=== PATIENT | female | born 1990 | race American Indian/Alaskan Native ===

== ENCOUNTER 2020-12-27 12:39 | Outpatient (CLI) | payer OTHER ==
--- NOTE | 2020-12-27 14:10 | XRay Report ---
Lumbar spine, 3 views INDICATION: BACK PAIN. COMPARISON: None. FINDINGS: Vertebral body heights are preserved and there is no evidence for vertebral body fracture o r subluxation. Slight dextroconvex curvature of the lumbar spine centered at L2/L3, possibly due to p atient positioning. Intervertebral disc spaces are well preserved without significant degenerative ch lizett. Partially visualized tubing from a suspected ventriculoperitoneal shunt with distal tip overlyi ng the left mid abdomen. IMPRESSION: Lumbar spine without evidence of acute osseous injury or significant degenerative change. Signer Name: Ean Romero MD Signed: 12/27/2020 2:05 PM Workstation Name: [id number]
== END 2020-12-27 12:40 | disposition home or self-care (01) ==
LOC: XRAY 12:39
PROVIDERS: ATTEND Internal Medicine
DX: M43.8X6 Other specified deforming dorsopathies, lumbar region (principal)
CPT/HCPCS: 72100